=== PATIENT | female | born 1995 | race Caucasian/White ===

== ENCOUNTER → 2016-12-25 | Outpatient (CLI) | payer OTHER ==
[2016-12-25 10:44] LABS: MEAN CORPUSCULAR HEMOGLOBIN 31.2 pg (27.0-33.0); MEAN CORPUSCULAR HGB CONC 34.5 g/dl (32.0-36.5); MEAN CORPUSCULAR VOLUME 90.3 fl (80.0-96.0); RED CELL DISTRIBUTION WIDTH 12.2 % (11.5-14.5)
[2016-12-25 11:19] LABS: ALBUMIN 3.7 GM/DL (3.2-5.2); ALKALINE PHOSPHATASE 58 U/L (45-117); ALT/SGPT 15 U/L (12-78); ANION GAP 7 MEQ/L (8-16); AST/SGOT 14 U/L (15-37); BILIRUBIN,TOTAL 0.3 MG/DL (0.2-1.0); BLOOD UREA NITROGEN 11 MG/DL (7-18); CALCIUM LEVEL 9.2 MG/DL (8.5-10.1); CARBON DIOXIDE LEVEL 26 MEQ/L (21-32); CHLORIDE LEVEL 107 MEQ/L (98-107); GLOMERULAR FILTRATION RATE > 60.0 (>60); GLUCOSE, FASTING 79 MG/DL (70-105); POTASSIUM SERUM 4.8 MEQ/L (3.5-5.1); SODIUM LEVEL 140 MEQ/L (136-145); TOTAL PROTEIN 7.8 GM/DL (6.4-8.2)
== END ==
LOC: M LAB 09:17
PROVIDERS: ATTEND Nurse Practitioner Adult Health
DX: K58.0 Irritable bowel syndrome with diarrhea (principal); K21.9 Gastro-esophageal reflux disease without esophagitis; J30.9 Allergic rhinitis, unspecified; L30.9 Dermatitis, unspecified

== ENCOUNTER → 2017-12-18 | Outpatient (CLI) | payer OTHER ==
[2017-12-18 10:40] LABS: ALBUMIN 3.8 GM/DL (3.2-5.2); ALBUMIN/GLOBULIN RATIO 0.93 (1.00-1.93); ALKALINE PHOSPHATASE 66 U/L (45-117); ALT/SGPT 15 U/L (12-78); ANION GAP 8 MEQ/L (8-16); AST/SGOT 15 U/L (7-37); BILIRUBIN,TOTAL 0.2 MG/DL (0.2-1.0); BLOOD UREA NITROGEN 14 MG/DL (7-18); CALCIUM LEVEL 9.2 MG/DL (8.5-10.1); CARBON DIOXIDE LEVEL 26 MEQ/L (21-32); CHLORIDE LEVEL 106 MEQ/L (98-107); CHOLESTEROL LEVEL 204 MG/DL (<200); CHOLESTEROL RISK RATIO 4.434 (<5); CREATININE FOR GFR 0.75 MG/DL (0.55-1.30); GLOMERULAR FILTRATION RATE > 60.0 (>60); GLUCOSE, FASTING 79 MG/DL (70-100); HDL CHOLESTEROL 46 MG/DL (>40); LDL CHOLESTEROL 102.6 MG/DL (<100); NON-HDL-C 158 MG/DL; POTASSIUM SERUM 4.8 MEQ/L (3.5-5.1); SODIUM LEVEL 140 MEQ/L (136-145); TOTAL PROTEIN 7.9 GM/DL (6.4-8.2); TRIGLYCERIDES LEVEL 277 MG/DL (<150)
== END ==
LOC: M LAB 09:20
DX: Z00.00 Encounter for general adult medical examination without abnormal findings (principal); Z83.42 Family history of familial hypercholesterolemia
CPT/HCPCS: 84443

== ENCOUNTER → 2018-12-21 | Outpatient (CLI) | payer OTHER ==
[2018-12-21 09:27] LABS: HEMATOCRIT 35.5 % (36.0-47.0); HEMOGLOBIN 11.9 g/dl (12.0-15.5); MEAN CORPUSCULAR HGB CONC 33.5 g/dl (32.0-36.5); MEAN CORPUSCULAR VOLUME 86.4 fl (80.0-96.0); PLATELET COUNT, AUTOMATED 417 10^3/uL (150-450); RED BLOOD COUNT 4.11 10^6/uL (4.00-5.40); WHITE BLOOD COUNT 10.1 10^3/uL (4.0-10.0)
[2018-12-21 10:04] LABS: ALBUMIN 3.5 GM/DL (3.2-5.2); ALT/SGPT 15 U/L (12-78); BILIRUBIN,TOTAL 0.3 MG/DL (0.2-1.0); BLOOD UREA NITROGEN 16 MG/DL (7-18); CARBON DIOXIDE LEVEL 26 MEQ/L (21-32); CHLORIDE LEVEL 106 MEQ/L (98-107); CHOLESTEROL LEVEL 196 MG/DL (<200); CHOLESTEROL RISK RATIO 3.111 (<5); CREATININE FOR GFR 0.79 MG/DL (0.55-1.30); GLOMERULAR FILTRATION RATE > 60.0 (>60); GLUCOSE, FASTING 75 MG/DL (70-100); HDL CHOLESTEROL 63 MG/DL (>40); LDL CHOLESTEROL 105 MG/DL (<100); NON-HDL-C 133 MG/DL; POTASSIUM SERUM 4.1 MEQ/L (3.5-5.1); SODIUM LEVEL 138 MEQ/L (136-145); TOTAL PROTEIN 7.6 GM/DL (6.4-8.2); TRIGLYCERIDES LEVEL 139 MG/DL (<150)
[2018-12-21 11:20] LABS: HEMOGLOBIN A1c 5.3 %
== END ==
LOC: M LAB 08:47
PROVIDERS: ATTEND Nurse Practitioner Adult Health
DX: Z00.00 Encounter for general adult medical examination without abnormal findings (principal); Z83.42 Family history of familial hypercholesterolemia; Z83.3 Family history of diabetes mellitus

== ENCOUNTER → 2019-12-20 | Outpatient (REF) | payer OTHER ==
[2019-12-20 13:18] LABS: HEMATOCRIT 37.9 % (36.0-47.0); HEMOGLOBIN 12.6 g/dl (12.0-15.5); MEAN CORPUSCULAR HEMOGLOBIN 29.6 pg (27.0-33.0); MEAN CORPUSCULAR HGB CONC 33.2 g/dl (32.0-36.5); PLATELET COUNT, AUTOMATED 480 10^3/uL (150-450); RED BLOOD COUNT 4.26 10^6/uL (4.00-5.40)
[2019-12-20 13:54] LABS: ALBUMIN 3.6 GM/DL (3.2-5.2); ALT/SGPT 16 U/L (12-78); BILIRUBIN,TOTAL 0.3 MG/DL (0.2-1.0); BLOOD UREA NITROGEN 14 MG/DL (7-18); CALCIUM LEVEL 9.6 MG/DL (8.5-10.1); CARBON DIOXIDE LEVEL 26 MEQ/L (21-32); CHLORIDE LEVEL 104 MEQ/L (98-107); CHOLESTEROL LEVEL 240 MG/DL (<200); CREATININE FOR GFR 0.81 MG/DL (0.55-1.30); GLOMERULAR FILTRATION RATE > 60.0 (>60); GLUCOSE, FASTING 82 MG/DL (70-100); HDL CHOLESTEROL 62 MG/DL (>40); LDL CHOLESTEROL 132 MG/DL (<100); NON-HDL-C 178 MG/DL; POTASSIUM SERUM 4.8 MEQ/L (3.5-5.1); SODIUM LEVEL 136 MEQ/L (136-145); TOTAL PROTEIN 8.1 GM/DL (6.4-8.2); TRIGLYCERIDES LEVEL 229 MG/DL (<150)
[2019-12-20 14:50] LABS: HEMOGLOBIN A1c 5.2 %
== END ==
LOC: M SFHCPLAZ 12:05
PROVIDERS: ATTEND Nurse Practitioner Adult Health
DX: Z00.00 Encounter for general adult medical examination without abnormal findings (principal); Z83.3 Family history of diabetes mellitus; Z83.42 Family history of familial hypercholesterolemia

== ENCOUNTER → 2020-02-07 | Outpatient (REF) | payer OTHER | LOC: M SFHCPLAZ 13:54 | PROVIDERS: ATTEND Nurse Practitioner Adult Health | DX: Z00.00 Encounter for general adult medical examination without abnormal findings (principal); E03.9 Hypothyroidism, unspecified ==

== ENCOUNTER → 2020-05-30 | Outpatient (REF) | payer OTHER | LOC: M SFHCWAGY 15:09 | PROVIDERS: ATTEND Nurse Practitioner Family | DX: Z12.4 Encounter for screening for malignant neoplasm of cervix (principal) ==

== ENCOUNTER → 2020-07-03 | Outpatient (REF) | payer OTHER | LOC: M SFHCPLAZ 13:34 | PROVIDERS: ATTEND Nurse Practitioner Adult Health | DX: E03.9 Hypothyroidism, unspecified (principal) ==

== ENCOUNTER → 2020-08-09 | Outpatient (CLI) | payer OTHER ==
[2020-08-09 13:47] LABS: C REACTIVE PROTEIN QUANTITATIV 1.22 MG/DL (0.00-0.30); RHEUMATOID FACTOR QUANT < 10.0 IU/ML (<15.0)
== END ==
LOC: M PLALAB 09:56
PROVIDERS: ATTEND Physician Assistant
DX: M54.2 Cervicalgia (principal)

== ENCOUNTER → 2020-12-29 | Outpatient (CLI) | payer OTHER ==
[2020-12-29 13:29] LABS: HEMATOCRIT 38.4 % (36.0-47.0); HEMOGLOBIN 12.7 g/dl (12.0-15.5); MEAN CORPUSCULAR HEMOGLOBIN 29.7 pg (27.0-33.0); MEAN CORPUSCULAR HGB CONC 33.1 g/dl (32.0-36.5); MEAN CORPUSCULAR VOLUME 89.9 fl (80.0-96.0); PLATELET COUNT, AUTOMATED 411 10^3/uL (150-450); RED BLOOD COUNT 4.27 10^6/uL (4.00-5.40)
[2020-12-29 14:14] LABS: ALBUMIN 3.5 GM/DL (3.2-5.2); ALT/SGPT 17 U/L (12-78); BILIRUBIN,TOTAL 0.2 MG/DL (0.2-1.0); BLOOD UREA NITROGEN 12 MG/DL (7-18); CALCIUM LEVEL 9.5 MG/DL (8.5-10.1); CARBON DIOXIDE LEVEL 25 MEQ/L (21-32); CHLORIDE LEVEL 108 MEQ/L (98-107); CHOLESTEROL LEVEL 210 MG/DL (<200); CHOLESTEROL RISK RATIO 3.442 (<5); GLOMERULAR FILTRATION RATE > 60.0 (>60); GLUCOSE, FASTING 77 MG/DL (70-100); HDL CHOLESTEROL 61 MG/DL (>40); LDL CHOLESTEROL 102 MG/DL (<100); NON-HDL-C 149 MG/DL; POTASSIUM SERUM 5.3 MEQ/L (3.5-5.1); SODIUM LEVEL 139 MEQ/L (136-145); TOTAL PROTEIN 7.5 GM/DL (6.4-8.2); TRIGLYCERIDES LEVEL 237 MG/DL (<150)
[2020-12-29 14:30] LABS: HEMOGLOBIN A1c 5.1 %
== END ==
LOC: M PLALAB 11:06
PROVIDERS: ATTEND Nurse Practitioner Adult Health
DX: E03.9 Hypothyroidism, unspecified (principal); Z83.3 Family history of diabetes mellitus

== ENCOUNTER → 2021-05-24 | Outpatient (REF) | payer OTHER | LOC: M SFHCPLAZ 20:06 | PROVIDERS: ATTEND Nurse Practitioner Adult Health | DX: Z53.20 Procedure and treatment not carried out because of patient's decision for unspecified reasons (principal) ==

== ENCOUNTER → 2021-05-28 | Outpatient (CLI) | payer OTHER | LOC: M PLALAB 08:17 | PROVIDERS: ATTEND Nurse Practitioner Adult Health | DX: E03.9 Hypothyroidism, unspecified (principal) ==

== ENCOUNTER → 2021-12-28 | Outpatient (CLI) | payer OTHER ==
[2021-12-28 10:11] LABS: HEMATOCRIT 37.1 % (36.0-47.0); HEMOGLOBIN 12.3 g/dl (12.0-15.5); MEAN CORPUSCULAR HEMOGLOBIN 29.5 pg (27.0-33.0); MEAN CORPUSCULAR HGB CONC 33.2 g/dl (32.0-36.5); PLATELET COUNT, AUTOMATED 473 10^3/uL (150-450); RED BLOOD COUNT 4.17 10^6/uL (4.00-5.40); WHITE BLOOD COUNT 9.3 10^3/uL (4.0-10.0)
[2021-12-28 10:53] LABS: HEMOGLOBIN A1c 4.9 %
[2021-12-28 11:07] LABS: ALBUMIN 3.3 GM/DL (3.2-5.2); ALT/SGPT 15 U/L (12-78); BILIRUBIN,TOTAL 0.2 MG/DL (0.2-1.0); BLOOD UREA NITROGEN 11 MG/DL (7-18); CALCIUM LEVEL 9.5 MG/DL (8.5-10.1); CARBON DIOXIDE LEVEL 24 MEQ/L (21-32); CHLORIDE LEVEL 108 MEQ/L (98-107); CHOLESTEROL LEVEL 202 MG/DL (<200); CHOLESTEROL RISK RATIO 3.107 (<5); CREATININE FOR GFR 0.84 MG/DL (0.55-1.30); GLOMERULAR FILTRATION RATE > 60.0 (>60); GLUCOSE, FASTING 89 MG/DL (70-100); HDL CHOLESTEROL 65 MG/DL (>40); LDL CHOLESTEROL 97 MG/DL (<100); NON-HDL-C 137 MG/DL; POTASSIUM SERUM 4.9 MEQ/L (3.5-5.1); SODIUM LEVEL 140 MEQ/L (136-145); TOTAL PROTEIN 7.5 GM/DL (6.4-8.2); TRIGLYCERIDES LEVEL 201 MG/DL (<150)
== END ==
LOC: M PLALAB 08:06
PROVIDERS: ATTEND Nurse Practitioner Adult Health
DX: Z00.00 Encounter for general adult medical examination without abnormal findings (principal); Z83.3 Family history of diabetes mellitus; Z83.42 Family history of familial hypercholesterolemia

== ENCOUNTER → 2022-07-01 | Outpatient (CLI) | payer OTHER | LOC: M PLALAB 08:26 | PROVIDERS: ATTEND Nurse Practitioner Adult Health | DX: E03.9 Hypothyroidism, unspecified (principal) ==

== ENCOUNTER → 2023-01-01 | Outpatient (REF) | payer OTHER | LOC: M SFHCPLAZ 22:18 | PROVIDERS: ATTEND Nurse Practitioner Adult Health | DX: Z53.20 Procedure and treatment not carried out because of patient's decision for unspecified reasons (principal) ==

== ENCOUNTER → 2023-01-03 | Outpatient (CLI) | payer OTHER ==
[2023-01-03 10:55] LABS: HEMATOCRIT 37.3 % (36.0-47.0); HEMOGLOBIN 12.1 g/dl (12.0-15.5); MEAN CORPUSCULAR HEMOGLOBIN 28.7 pg (27.0-33.0); MEAN CORPUSCULAR HGB CONC 32.4 g/dl (32.0-36.5); MEAN CORPUSCULAR VOLUME 88.6 fl (80.0-96.0); PLATELET COUNT, AUTOMATED 458 10^3/uL (150-450); RED BLOOD COUNT 4.21 10^6/uL (4.00-5.40)
[2023-01-03 11:12] LABS: HEMOGLOBIN A1c 5.1 % (4.0-6.0)
[2023-01-03 11:26] LABS: ALBUMIN 3.3 G/DL (3.2-5.2); ALKALINE PHOSPHATASE 74 U/L (46-116); ALT/SGPT 11 U/L (7.0-40); AST/SGOT 9 U/L (<34); BILIRUBIN,TOTAL 0.3 MG/DL (0.3-1.2); BLOOD UREA NITROGEN 11 MG/DL (9-23); CALCIUM LEVEL 9.4 MG/DL (8.5-10.1); CARBON DIOXIDE LEVEL 26 MMOL/L (20-31); CHLORIDE LEVEL 104 MMOL/L (98-107); CHOLESTEROL LEVEL 217 MG/DL (<200); CHOLESTEROL RISK RATIO 3.54 (<5); CREATININE FOR GFR 0.67 MG/DL (0.55-1.30); GLOMERULAR FILTRATION RATE > 60.0 (>60); GLUCOSE, FASTING 75 MG/DL (60-100); HDL CHOLESTEROL 61.2 MG/DL (>40); NON-HDL-C 155.8 MG/DL; POTASSIUM SERUM 4.3 MMOL/L (3.5-5.1); SODIUM LEVEL 139 MMOL/L (136-145); TRIGLYCERIDES LEVEL 174 MG/DL (<150)
== END ==
LOC: M PLALAB 08:35
PROVIDERS: ATTEND Nurse Practitioner Adult Health
DX: Z00.00 Encounter for general adult medical examination without abnormal findings (principal); E03.9 Hypothyroidism, unspecified; Z83.3 Family history of diabetes mellitus; Z83.42 Family history of familial hypercholesterolemia

== ENCOUNTER → 2023-06-27 | Outpatient (REF) | payer OTHER | LOC: M PLALAB 13:33 | PROVIDERS: ATTEND Obstetrics & Gynecology | DX: Z01.419 Encounter for gynecological examination (general) (routine) without abnormal findings (principal) ==

== ENCOUNTER → 2023-07-18 | Outpatient (CLI) | payer OTHER | LOC: M PLALAB 08:30 | PROVIDERS: ATTEND Nurse Practitioner Adult Health | DX: E03.9 Hypothyroidism, unspecified (principal) ==

== ENCOUNTER → 2024-01-12 | Outpatient (CLI) | payer OTHER ==
[2024-01-12 12:41] LABS: HEMATOCRIT 38.7 % (36.0-47.0); HEMOGLOBIN 12.6 g/dl (12.0-15.5); MEAN CORPUSCULAR HEMOGLOBIN 28.7 pg (27.0-33.0); MEAN CORPUSCULAR HGB CONC 32.6 g/dl (32.0-36.5); MEAN CORPUSCULAR VOLUME 88.2 fl (80.0-96.0); PLATELET COUNT, AUTOMATED 414 10^3/uL (150-450); RED BLOOD COUNT 4.39 10^6/uL (4.00-5.40); WHITE BLOOD COUNT 11.1 10^3/uL (4.0-10.0)
[2024-01-12 13:04] LABS: FREE T4 1.04 NG/DL (0.89-1.76)
[2024-01-12 13:05] LABS: THYROID STIMULATING HORMONE 4.843 uIU/ML (0.55-4.78)
[2024-01-12 13:13] LABS: ALBUMIN 3.3 G/DL (3.2-5.2); ALKALINE PHOSPHATASE 76 U/L (46-116); ALT/SGPT 10 U/L (7.0-40); AST/SGOT 8 U/L (<34); BILIRUBIN,TOTAL 0.2 MG/DL (0.3-1.2); BLOOD UREA NITROGEN 13 MG/DL (9-23); CALCIUM LEVEL 9.4 MG/DL (8.5-10.1); CARBON DIOXIDE LEVEL 24 MMOL/L (20-31); CHLORIDE LEVEL 107 MMOL/L (98-107); CHOLESTEROL LEVEL 207 MG/DL (<200); CHOLESTEROL RISK RATIO 3.77 (<5); GLOMERULAR FILTRATION RATE > 60.0 (>60); GLUCOSE, FASTING 73 MG/DL (60-100); HDL CHOLESTEROL 54.8 MG/DL (>40); LDL CHOLESTEROL 102.2 MG/DL (<100); NON-HDL-C 152.2 MG/DL; POTASSIUM SERUM 5.2 MMOL/L (3.5-5.1); SODIUM LEVEL 139 MMOL/L (136-145); TOTAL PROTEIN 6.9 G/DL (5.7-8.2); TRIGLYCERIDES LEVEL 250 MG/DL (<150)
== END ==
LOC: M PLALAB 08:34
PROVIDERS: ATTEND Nurse Practitioner Adult Health
DX: Z00.00 Encounter for general adult medical examination without abnormal findings (principal); Z83.3 Family history of diabetes mellitus; Z83.42 Family history of familial hypercholesterolemia; E03.9 Hypothyroidism, unspecified

== ENCOUNTER 2024-02-04 12:24 | Emergency (ER) | payer OTHER ==
[~2024-02-04] VITALS: Ht 157.5 cm; Wt 72.1 kg
[2024-02-04] MEDS ORDERED: CLAR10CA3 PO (12:37)
[2024-02-04] MEDS ORDERED: SERT50TA29 PO (12:37)
[2024-02-04] MEDS ORDERED: SYED1TAB2 PO (12:37)
[2024-02-04] MEDS ORDERED: LEVO25TA5 PO (12:37)
[2024-02-04] MEDS: KETOROLAC 30 MG/ML 1ML VIAL IV ONE (17:30)
[2024-02-04] MEDS: NS 1,000 ML IV ONE (17:30)
[2024-02-04] MEDS: METOCLOPRAMIDE INJ 10MG/2ML VIAL IV ONE (17:32)
[2024-02-04] MEDS: diphenhydrAMINE 50MG/ML VIAL IV STA (20:31)
[2024-02-04] MEDS: MAG SULF 1GM/100ML (MAG RUN) 1 GM in IV 1 EA IV ONE (20:53)
[2024-02-04] MEDS: ACETAMINOPHEN 500 MG TAB PO ONE (20:53)
[2024-02-04 20:57] LABS: BASO # 0.1 10^3/uL (0.0-0.2); BASO % 0.4 % (0.0-1.0); EOS # 0.2 10^3/uL (0.0-0.5); EOS % 1.4 % (0.0-3.0); HEMATOCRIT 35.1 % (36.0-47.0); HEMOGLOBIN 11.8 g/dl (12.0-15.5); LYMPH # 6.4 10^3/uL (1.5-5.0); LYMPH % 47.2 % (24.0-44.0); MEAN CORPUSCULAR HEMOGLOBIN 29.3 pg (27.0-33.0); MEAN CORPUSCULAR HGB CONC 33.6 g/dl (32.0-36.5); MEAN CORPUSCULAR VOLUME 87.1 fl (80.0-96.0); MONO # 0.8 10^3/uL (0.0-0.8); MONO % 6.2 % (2.0-8.0); NEUTROPHILS % 44.6 % (36.0-66.0); PLATELET COUNT, AUTOMATED 422 10^3/uL (150-450); RED BLOOD COUNT 4.03 10^6/uL (4.00-5.40); WHITE BLOOD COUNT 13.5 10^3/uL (4.0-10.0)
[2024-02-04 21:18] LABS: ALBUMIN 3.2 G/DL (3.2-5.2); ALKALINE PHOSPHATASE 67 U/L (46-116); ALT/SGPT 18 U/L (7.0-40); AST/SGOT 14 U/L (<34); BILIRUBIN,TOTAL 0.2 MG/DL (0.3-1.2); BLOOD UREA NITROGEN 13 MG/DL (9-23); CALCIUM LEVEL 8.5 MG/DL (8.5-10.1); CARBON DIOXIDE LEVEL 21 MMOL/L (20-31); CHLORIDE LEVEL 112 MMOL/L (98-107); CREATININE FOR GFR 0.66 MG/DL (0.55-1.30); GLOMERULAR FILTRATION RATE > 60.0 (>60); GLUCOSE, FASTING 88 MG/DL (60-100); POTASSIUM SERUM 4.2 MMOL/L (3.5-5.1); SODIUM LEVEL 139 MMOL/L (136-145); TOTAL PROTEIN 6.8 G/DL (5.7-8.2)
[2024-02-04] MEDS ORDERED: ZITH500T PO (21:48)
[2024-02-04 22:03] VITALS: BP 106/61; TEMP 98.6; O2SAT 99
== END 2024-02-04 22:08 | disposition home or self-care (01) ==
LOC: M ED 12:24
DX: G44.219 Episodic tension-type headache, not intractable (principal); J01.90 Acute sinusitis, unspecified; E03.9 Hypothyroidism, unspecified; F41.9 Anxiety disorder, unspecified; Z88.2 Allergy status to sulfonamides; Z91.011 Allergy to milk products; Z91.048 Other nonmedicinal substance allergy status; Z79.899 Other long term (current) drug therapy
CPT/HCPCS: 70450; 80053; 85025; 96365; 96375; 99284; J1200; J1885; J2765; J3475

== ENCOUNTER → 2024-07-15 | Outpatient (CLI) | payer OTHER ==
[~2024-07-15] MED LIST: CLAR10CA3 PO; LEVO25TA5 PO; SERT50TA29 PO; SYED1TAB2 PO; ZITH500T PO
[2024-07-15 14:46] LABS: FREE T4 1.25 NG/DL (0.89-1.76)
[2024-07-15 14:47] LABS: THYROID STIMULATING HORMONE 1.32 uIU/ML (0.55-4.78)
== END ==
LOC: M PLALAB 10:56
PROVIDERS: ATTEND Nurse Practitioner Adult Health
DX: E03.9 Hypothyroidism, unspecified (principal)

== ENCOUNTER → 2024-07-20 | Outpatient (CLI) | payer OTHER ==
[~2024-07-20] MED LIST changes: +PROHANCE 279.3MG/ML 15ML VIAL As Ordered ONE
== END ==
LOC: M RAD 16:10
PROVIDERS: ATTEND Physician Assistant Medical
DX: R51.9 Headache, unspecified (principal)
CPT/HCPCS: 70553; A9576

== ENCOUNTER → 2025-01-07 | Outpatient (CLI) | payer OTHER ==
[~2025-01-07] MED LIST changes: -PROHANCE 279.3MG/ML 15ML VIAL As Ordered ONE
[2025-01-07 10:50] LABS: PLATELET COUNT, AUTOMATED 431 10^3/uL (150-450)
[2025-01-07 11:07] LABS: ESTIMATED AVERAGE GLUCOSE 103.0 MG/DL (60-110)
[2025-01-07 11:08] LABS: ALT/SGPT 13 U/L (7.0-40); AST/SGOT 18 U/L (<34); CALCIUM LEVEL 9.5 MG/DL (8.5-10.1); CARBON DIOXIDE LEVEL 24 MMOL/L (20-31); CHLORIDE LEVEL 106 MMOL/L (98-107); CHOLESTEROL LEVEL 193 MG/DL (<200); CHOLESTEROL RISK RATIO 2.97 (<5); CREATININE FOR GFR 0.76 MG/DL (0.55-1.30); GLOMERULAR FILTRATION RATE > 90.0 (>60); LDL CHOLESTEROL 97.4 MG/DL (<100); NON-HDL-C 128.2 MG/DL; POTASSIUM SERUM 4.5 MMOL/L (3.5-5.1); SODIUM LEVEL 141 MMOL/L (136-145); TRIGLYCERIDES LEVEL 154 MG/DL (<150)
[2025-01-07 11:33] LABS: FREE T4 1.07 NG/DL (0.89-1.76)
== END ==
LOC: M PLALAB 06:49
PROVIDERS: ATTEND Nurse Practitioner Adult Health
DX: Z00.00 Encounter for general adult medical examination without abnormal findings (principal); E03.9 Hypothyroidism, unspecified; Z83.3 Family history of diabetes mellitus; Z83.42 Family history of familial hypercholesterolemia